=== PATIENT | female | born 1965 | race Caucasian/White ===

== ENCOUNTER 2022-11-13 10:13 | Outpatient (CLI) | payer BC, SELFPAY ==
[2022-11-13 13:11] LABS: Albumin* 4.4 g/dL (3.3-5.0)
[2022-11-13 13:12] LABS: Chloride* 104 mmol/L (96-114); Potassium* 5.4 mmol/L (3.6-5.1); Sodium* 135 mmol/L (135-149)
[2022-11-13 13:14] LABS: Bilirubin Total* 0.5 mg/dL (0.1-1.5); Carbon Dioxide* 28 mmol/L (20-32); Creatinine* 0.9 mg/dL (0.5-1.5); Estimated Glomerular Filt Rate 74 ml/min
[2022-11-13 13:15] LABS: Alanine Aminotransferase* 32 U/L (4-35); Alkaline Phosphatase* 95 U/L (40-150); Aspartate Amino Transferase* 64 U/L (12-35); Blood Urea Nitrogen* 15 mg/dL (7-30); Calcium* 9.2 mg/dL (8.4-10.6); Glucose* 67 mg/dL (60-115); Total Protein* 7.1 g/dL (6.0-8.3)
== END 2022-11-13 10:14 | disposition home or self-care (01) ==
PROVIDERS: Visit Provider Family Medicine
DX: R53.83 Other fatigue (principal); R11.2 Nausea with vomiting, unspecified; R53.1 Weakness
CPT/HCPCS: 80053; 84443